=== PATIENT | male | born 1945 | race Two or more races ===

== ENCOUNTER 2021-06-19 07:54 | Outpatient (CLI) | payer OTHER | END 2021-06-19 07:55 | disposition home or self-care (01) | LOC: NUCLEAR 07:54 | PROVIDERS: ATTEND Psychiatry & Neurology Neurology | DX: G30.1 Alzheimer's disease with late onset (principal); G31.83 Neurocognitive disorder with Lewy bodies | CPT/HCPCS: 78811; A9552 ==